=== PATIENT | male | born 1965 | race Caucasian/White ===

== ENCOUNTER 2018-12-24 09:44 | Emergency (ER) | payer SELFPAY ==
[2018-12-24] MEDS ORDERED: IBUPROFEN 800 MG TABLET PO ONE (11:38)
[2018-12-24] MEDS ORDERED: POLYMYXIN B SULFATE/TMP OPH SOLN (10 ML/ER DISP) AS PRN (11:38)
--- NOTE | 2018-12-24 11:44 | ER Document Report ---
HPI - HPI Patient complains to provider of: Left ear pain Time Seen by Provider: 12/24/18 11:09 Pain Level: 5 Context: Patient is a 53-year-old male presents to the emergency department for left ear pain. States he has had intermittent left ear pain for the last 3 weeks. States that the beginning of the ear pain he did presents to an urgent care in [place] as that is where he was currently residing. States they told him to take [id number] Motrin and that there was "some fluid behind my ear." States he is continued with this pain but is denying any discharge. Patient's denying any fevers, sore throat, chest pain, shortness of breath. Patient is admitting to some generalized nasal congestion, states he uses Flonase on a semiregular basis. - CONSTITUTIONAL Constitutional: DENIES: Fever, Chills - EENT EENT: REPORTS: Ear Pain - L side. DENIES: Sore Throat, Eye problems - NEURO Neurology: DENIES: Headache, Weakness, Vision blurred, Dizzinesss / Vertigo Past Medical History - General Information source: Patient - Social History Smoking Status: Current Every Day Smoker Chew tobacco use (# tins/day): No Frequency of alcohol use: None Drug Abuse: None Family History: Reviewed & Not Pertinent Patient has suicidal ideation: No Patient has homicidal ideation: No - Past Medical History Cardiac Medical History: Reports: Hx Hypertension - Uncontrolled Renal/ Medical History: Denies: Hx Peritoneal Dialysis Vertical Provider Document - CONSTITUTIONAL Agree With Documented VS: Yes Notes: GENERAL: Alert, interacts well. No acute distress. HEAD: Normocephalic, atraumatic. EYES: Pupils equal, round, and reactive to light. Extraocular movements intact. ENT: Oral mucosa moist, tongue midline. Nares patent, TM's intact, nonerythematous, nonbulging bilaterally. Right canal within normal limits, left canal minorly erythematous and somewhat swollen. Patient does have left tragal tenderness noted. No mastoid tenderness or redness noted bilaterally. NECK: Full range of motion. Supple. Trachea midline. No lymphadenopathy appreciated LUNGS: Clear to auscultation bilaterally, no wheezes, rales, or rhonchi. No respiratory distress. HEART: Regular rate and rhythm. No murmur ABDOMEN: Soft, non-tender. Non-distended. Bowel sounds present in all 4 quadrants. EXTREMITIES: Moves all 4 extremities spontaneously. No edema, normal radial and dorsalis pedis pulses bilaterally. No cyanosis. BACK: no cervical, thoracic, lumbar midline tenderness. No saddle anesthesia, normal distal neurovascular exam. NEUROLOGICAL: Alert and oriented x3. Normal speech. cranial nerves II through XII grossly intact. PSYCH: Normal affect, normal mood. SKIN: Warm, dry, normal turgor. No rashes or lesions noted. Course - Re-evaluation Re-evalutation: 12/24/18 11:41 Patient's physical exam is consistent with otitis externa. Discussed use of an tibiotics, [id number]-ogefyzj analgesics and follow-up with primary care provider. No mastoid tenderness, redness noted bilaterally. TM visualized bilaterally, no need for Ear wick at this time At this time will discharge with return precautions and follow-up recommendations. Verbal discharge instructions given a the bedside and opportunity for questions given. Medication warnings reviewed. Patient is in agreement with this plan and has verbalized understanding of return precautions and the need for primary care follow-up in the next 24-72 hours. This medical record was dictated with voice recognizing software. There may be grammatical, syntax errors that are unintended. - Vital Signs Vital signs: Temp Pulse Resp BP Pulse Ox 98 F 105 H 18 146/88 H 97 12/24/18 09:57 12/24/18 09:57 12/24/18 09:57 12/24/18 09:57 12/24/18 09:57 Discharge - Discharge Clinical Impression: Otitis externa Qualifiers: Otitis externa type: unspecified type Chronicity: acute Laterality: left Qualified Code(s): H60.502 - Unspecified acute noninfective otitis externa, left ear Condition: Stable Disposition: HOME, SELF-CARE Instructions: Use of Ear Drops ([facility]), Otitis Externa ([facility]) Additional Instructions: As we discussed you have been seen and treated in the emergency department for an outer ear infection. Please use antibiotics as we have discussed. You can place 4 drops in the affected ear 4 times a day for the next 7 to 10 days. Please take [id number] Tylenol or Motrin for generalized pain. Please follow-up with your primary care provider next 24 to 48 hours. Please return to the emergency room for any concerns. Prescriptions: Polymyxin B Sulf/Trimethoprim [Polytrim Eye Drops] 4 drop Q6 10 Days #10 ml Forms: Return to Work
[2018-12-24 11:58] VITALS: BP 159/95
== END 2018-12-24 11:59 | disposition home or self-care (01) ==
LOC: ER 09:44
DX: H60.502 Unspecified acute noninfective otitis externa, left ear (principal); H92.02 Otalgia, left ear; R09.81 Nasal congestion; F17.200 Nicotine dependence, unspecified, uncomplicated
CPT/HCPCS: 99282; J3490